=== PATIENT | female | born 1980 | race Caucasian/White ===

== ENCOUNTER → 2021-03-19 | Outpatient (CLI) | payer OTHER ==
[2021-03-19 15:37] LABS: Appearance, Urine Hazy (Clear); Bilirubin, Urine Neg (Neg); Blood, Urine Neg (Neg); Color, Urine Yellow (P-Yellow); Glucose Qualitative, Urine Neg (Neg); Ketones, Urine Neg (Neg); Leukocyte Esterase, Urine Neg (Neg); Nitrite, Urine Neg (Neg); Protein, Urine 1+ (Neg); Urobilinogen, Urine NORM (Normal)
[2021-03-19 16:00] LABS: Bacteria Many /hpf; Mucus Light (0-Heavy); Red Blood Cells, Urine 0-2 /hpf (0-2); Squamous Epithelial Cells Few /hpf (Few); White Blood Cells, Urine 0-2 /hpf (0-5)
== END ==
LOC: LAB 08:20 → LAB SHORT 08:20
PROVIDERS: Registered Nurse Community Health
DX: Z34.91 Encounter for supervision of normal pregnancy, unspecified, first trimester (principal)
CPT/HCPCS: 80055; 81001; 84702; 87086

== ENCOUNTER → 2021-03-30 | Outpatient (CLI) | payer OTHER ==
[2021-04-01 05:10] LABS: CHLAMYDIA TRACHOMATIS, NAA Negative (Negative)
== END ==
LOC: LAB 18:21 → LAB SHORT 18:21
PROVIDERS: Registered Nurse Community Health
DX: Z34.91 Encounter for supervision of normal pregnancy, unspecified, first trimester (principal)
CPT/HCPCS: 87491; 87591

== ENCOUNTER → 2021-08-11 | Outpatient (CLI) | payer OTHER ==
[2021-08-11 15:54] LABS: Hematocrit 32.4 % (33.0-51.0); Hemoglobin 10.6 g/dL (11.5-16.0)
== END ==
LOC: LAB 12:18 → LAB SHORT 12:18
PROVIDERS: Registered Nurse Community Health
DX: Z34.91 Encounter for supervision of normal pregnancy, unspecified, first trimester (principal)
CPT/HCPCS: 82950; 85014; 85018

== ENCOUNTER → 2021-10-06 | Outpatient (CLI) | payer OTHER | LOC: LAB SHORT 17:27 → LAB 17:27 | DX: Z34.91 Encounter for supervision of normal pregnancy, unspecified, first trimester (principal) | CPT/HCPCS: 87081; 87150 ==

== ENCOUNTER 2021-10-25 19:50 | Inpatient (IN) | payer OTHER ==
[~2021-10-25] VITALS: Ht 162.6 cm; Wt 91.8 kg
[2021-10-25 20:39] LABS: BASOPHILS ABSOLUTE AUTO 0.04 K/mm3 (0.00-0.23); BASOPHILS PERCENT AUTO 0 % (0-2); EOSINOPHILS ABSOLUTE AUTO 0.07 K/mm3 (0.00-0.68); EOSINOPHILS PERCENT AUTO 1 % (0-6); Hematocrit 35.3 % (33.0-51.0); Hemoglobin 11.6 g/dL (11.5-16.0); IMMATURE GRAN ABSOLUTE AUTO 0.08 K/mm3 (0.00-0.10); IMMATURE GRAN PERCENT AUTO 1 % (0-1); LYMPHOCYTES ABSOLUTE AUTO 2.43 K/mm3 (0.84-5.20); LYMPHOCYTES PERCENT AUTO 19 % (21-46); MONOCYTES ABSOLUTE AUTO 0.75 K/mm3 (0.16-1.47); MONOCYTES PERCENT AUTO 6 % (4-13); Mean Corpuscular HGB 30.8 pg (26.0-34.0); Mean Corpuscular HGB Conc 32.9 g/dL (31.5-36.5); Mean Corpuscular Volume 94 fL (80-100); NEUTROPHILS PERCENT AUTO 74 % (41-73); Platelet Count 297 K/mm3 (150-400); RDW Coefficient Variation 13.2 % (11.7-14.2); RDW Standard Deviation 45.1 fL (35.1-46.3); Red Blood Cell Count 3.77 M/mm3 (3.80-5.20); White Blood Cell Count 12.87 K/mm3 (4.00-11.30)
[2021-10-25] MEDS ORDERED: PRENATAL TABLE1 EAC2 PO (20:46)
[2021-10-25] MEDS ORDERED: BUSP10 PO (20:47)
[2021-10-25] MEDS ORDERED: ASPI81CH PO (20:47)
[2021-10-25 21:17] LABS: Influenza A, PCR NEGATIVE (NEGATIVE); Influenza B, PCR NEGATIVE (NEGATIVE); Resp Syncytial Virus, PCR NEGATIVE (NEGATIVE); SARS-Cov-2 (COVID-19) PCR, MMC NEGATIVE (NEGATIVE)
[2021-10-26 16:20] LABS: PCO2 Cord - Arterial 52.4 mmHg (40-50); PO2 Cord - Arterial 21.7 mmHg (16-20); pH Cord - Arterial 7.33 (7.28-7.35)
[2021-10-26 16:22] LABS: pH Umbilical Cord - Venous 7.36 (7.26-7.35)
--- NOTE | 2021-10-26 16:50 | NUR ---
10/26/21 1650 [facility] EMERGENC[facility] UNDER GENERAL ANESTHETIC DUE TO BRADYCARDIA FEMALE BORN AT 1604, 9/9 [id number] GM CORD SEGMENT COLLECTED AND SENT WITH RT FOR CORD GAS
--- NOTE | 2021-10-26 17:34 | NUR ---
IV IN LEFT HAND D/C TIP INTACT
--- NOTE | 2021-10-26 17:37 | NUR ---
PATIENT IN PACU SHAKING BP HIGHER THAT USUAL FOR PATIENT
--- NOTE | 2021-10-26 18:29 | NUR ---
GENTAL FUNDAL MASSAGE
--- NOTE | 2021-10-26 18:36 | NUR ---
1304 DR MARQUEZ AND Hanna GARCIAM AT BEDSIDE. AWARE OF DIFFICULTY OBTAINING AN ACCURATE BP DUE TO SHAKING. MANUAL BP WNL
[2021-10-27 08:30] LABS: BASOPHILS ABSOLUTE AUTO 0.04 K/mm3 (0.00-0.23); BASOPHILS PERCENT AUTO 0 % (0-2); EOSINOPHILS ABSOLUTE AUTO 0.01 K/mm3 (0.00-0.68); EOSINOPHILS PERCENT AUTO 0 % (0-6); Hematocrit 25.9 % (33.0-51.0); Hemoglobin 8.7 g/dL (11.5-16.0); IMMATURE GRAN PERCENT AUTO 1 % (0-1); LYMPHOCYTES ABSOLUTE AUTO 2.26 K/mm3 (0.84-5.20); LYMPHOCYTES PERCENT AUTO 14 % (21-46); MONOCYTES ABSOLUTE AUTO 1.04 K/mm3 (0.16-1.47); MONOCYTES PERCENT AUTO 7 % (4-13); Mean Corpuscular HGB 31.5 pg (26.0-34.0); Mean Corpuscular HGB Conc 33.6 g/dL (31.5-36.5); Mean Corpuscular Volume 94 fL (80-100); Mean Platelet Volume 10.7 fL (9.1-12.4); NEUTROPHILS ABSOLUTE AUTO 12.45 K/mm3 (1.96-9.15); NEUTROPHILS PERCENT AUTO 78 % (41-73); Platelet Count 213 K/mm3 (150-400); RDW Coefficient Variation 13.4 % (11.7-14.2); RDW Standard Deviation 45.9 fL (35.1-46.3); Red Blood Cell Count 2.76 M/mm3 (3.80-5.20)
--- NOTE | 2021-10-29 07:44 | NUR ---
pt questions answered about her medications, instructions on kimberly dressing and abd binder given. pt verbalized understanding.
[2021-10-29] MEDS ORDERED: Percocet 5-3251 EACH PO (10:17)
[2021-10-29] MEDS ORDERED: IBUP800 PO (10:18)
--- NOTE | 2021-10-29 11:30 | NUR ---
dc teaching gone over with pt, denies any questions, to make office appt on monday or monday, pt choice for kimberly dressing removed, pt has kimberly kit to repair leaks and encouraged to call if having problems with the kimberly dressing. encoaurged to call if needs anything, returning 10-30 for baby wt check/tsb and on 11-01 at 1000 for ppfu with michael for extra help
== END 2021-10-29 12:14 | disposition home or self-care (01) | DRG 788 ==
LOC: OBS 19:50 → BC 19:50 → OBS 19:59 → BC 20:00
PROVIDERS: Family Medicine; ADMIT Registered Nurse Community Health
PROC: 10D00Z1 Extraction of Products of Conception, Low, Open Approach (ICD-10-PCS; principal; 2021-10-26 14:30)
DX: O77.9 Labor and delivery complicated by fetal stress, unspecified (principal); Z3A.39 39 weeks gestation of pregnancy; Z37.0 Single live birth; Z20.822 Contact with and (suspected) exposure to COVID-19; N80.9 Endometriosis, unspecified; O99.892 Other specified diseases and conditions complicating childbirth; O99.344 Other mental disorders complicating childbirth; F41.9 Anxiety disorder, unspecified; Z79.899 Other long term (current) drug therapy
CPT/HCPCS: 0241U; 36415; 51702; 82803; 85025; 86850; 86900; 86901; A9270; J0456; J0690; J1100; J1885; J2001; J2210; J2405; J2704; J2765; J3010; J7050; J7120; Q0177